=== PATIENT | male | born 1995 | race Caucasian/White ===

== ENCOUNTER 2019-03-11 19:58 | Emergency (ER) | payer SELFPAY ==
[~2019-03-11] VITALS: Ht 182.9 cm; Wt 122.5 kg
--- OUTSIDE RECORDS SUMMARY | 2019-03-11 20:01 | XMS REPORT ---
Author Author [facility] Address Unknown Phone Unavailable Care Team Providers Care Commercial Leasing Manager Name Role Phone Unavailable Unavailable Problems This patient has no known problems. Allergies, Adverse Reactions, Alerts This patient has no known allergies or adverse reactions. Medications This patient has no known medications. Encounters Start Date/Time End Date/Time Encounter Type Admission Type Attending [facility] Facility Care Department Encounter ID 2019-01-14 09:19:47 2019-01-14 09:19:47 Outpatient [facility] [id number] 2019-01-01 15:32:09 2019-01-01 15:32:09 Outpatient [facility] [id number] 2018-11-16 15:30:59 2018-11-16 15:30:59 Outpatient [facility] [id number] 2018-10-15 11:52:51 2018-10-15 11:52:51 Outpatient [facility] [id number] 2018-10-15 11:07:38 2018-10-15 11:07:38 Outpatient [facility] [id number] 2018-09-29 02:05:44 2018-09-29 02:05:44 Emergency [facility] [id number] 2018-09-28 08:54:26 2018-09-28 08:54:26 Outpatient [facility] [id number] 2018-08-19 10:10:17 2018-08-19 10:10:17 Outpatient [facility] [id number] 2018-08-19 08:51:29 2018-08-19 08:51:29 Outpatient [facility] [id number]
--- OUTSIDE RECORDS SUMMARY | 2019-03-11 20:01 | XMS REPORT | Clinical Summary ---
Author Author [facility] Organization [facility] Address Unknown Phone Unavailable Care Team Providers Care Business Support Liaison Name Role Phone Franck Bose MD PCP Allergies No Active Allergies Medications End Date Status Medication Sig Dispensed Refills Start Date Active NIFEdipine (PROCARDIA XL) Take 1 tablet 30 tablet 3 30 mg extended release by mouth 9 tabletIndications: daily. Hypertension, unspecified type Active omeprazole (PRILOSEC) 20 Take 1 30 capsule 3 mg delayed release capsule by 9 capsuleIndications: mouth daily. Gastroesophageal reflux disease, esophagitis presence not specified 12/02/2018 Discontinued omeprazole (PRILOSEC) 20 Take 1 30 capsule 3 mg delayed release capsule by 9 capsuleIndications: mouth daily. Gastroesophageal reflux disease, esophagitis presence not specified 12/02/2018 Discontinued NIFEdipine (PROCARDIA XL) Take 1 tablet 30 tablet 3 30 mg extended release by mouth 9 tabletIndications: daily. Hypertension, unspecified type 08/29/2018 amoxicillin (AMOXIL) 500 Take 1 30 capsule 0 mg capsuleIndications: capsule by 9 Acute pharyngitis, mouth 3 times unspecified etiology daily for 10 days. 10/30/2018 diphenoxylate-atropine Take 1 tablet 30 tablet 0 (LOMOTIL) 2.5-0.025 mg by mouth 4 9 per tabletIndications: times daily Chronic diarrhea as needed for up to 5 days for Diarrhea. 12/07/2018 chlorhexidine (PERIDEX) Swish with 473 mL 0 0.12 % mouth 1/2 oz of 9 washIndications: Chronic solution in periodontitis mouth for 30 seconds and spit. Use twice daily for 2 weeks.. 01/14/2019 Discontinued NIFEdipine (PROCARDIA XL) Take 1 tablet 30 tablet 3 30 mg extended release by mouth 9 tabletIndications: daily. Hypertension, unspecified type 01/14/2019 Discontinued omeprazole (PRILOSEC) 20 Take 1 30 capsule 3 mg delayed release capsule by 9 capsuleIndications: mouth daily. Gastroesophageal reflux disease, esophagitis presence not specified Active Problems No known active problems Encounters Care Team Description Date Type Specialty Franck Bose III, MD Hypertension, unspecified type; Gastroesophageal reflux disease, esophagitis presence not specified 01/14/2019 Office Visit Family Practice Sandy Carroll DDS Chronic gingivitis, plaque induced (Primary Dx); Dental caries 01/01/2019 Office Visit Dentistry 01/01/2019 Travel Earline Love RN Hypertension, unspecified type; Gastroesophageal reflux disease, esophagitis presence not specified 11/30/2018 Refill Family Practice Sandy Carroll DDS Chronic periodontitis (Primary Dx); Dental caries 11/16/2018 Office Visit Dentistry 11/16/2018 Travel Ofelia George DO Chronic diarrhea (Primary Dx); Gastroesophageal reflux disease, esophagitis presence not specified; Hypertension, unspecified type 10/15/2018 Office Visit Family Practice Marizol Burris PA Diarrhea, unspecified type (Primary Dx); Acute gastritis without hemorrhage, unspecified gastritis type 09/29/2018 Emergency Emergency Medicine Hypertension, unspecified type 09/28/2018 Ancillary Radiology Procedure 09/28/2018 Travel Franck Bose III, MD Hypertension, unspecified type (Primary Dx); Immunization due; Gastroesophageal reflux disease, esophagitis presence not specified; BMI 38.0-38.9,adult; Acute pharyngitis, unspecified etiology 08/19/2018 Office Visit Family Practice 08/19/2018 Travel after 03/10/2018 Immunizations Name Administration Dates Next Due Influenza, 08/19/2018 Vaccine<FLUCELVAX>(Multi- Dose) Tdap (Tetanus Toxoid, 08/19/2018 Reduced Diphtheria Toxoid And Acellular Pertussis, Absorbed) Family History Medical History Relation Name Comments Diabetes Maternal Grandfather Diabetes Mother Diabetes Paternal Grandmother Relation Name Status Comments Father Alive Maternal Grandfather Alive Maternal Grandmother Alive Maternal Uncle Alive Mother Alive Paternal Aunt Alive Paternal Grandfather Paternal Grandmother Paternal Uncle Alive Social History Date Tobacco Use Types Packs/Day Years Used Current Some Day Smoker Smokeless Tobacco: Never Used Tobacco Cessation: Counseling Given: No Food Insecurity Answer Date Recorded Within the past 12 months, you worried that your Never true 08/19/2018 food would run out before you got money to buy more. Within the past 12 months, the food you bought Never true 08/19/2018 just didn't last and you didn't have money to get more. Sex Assigned at Date Recorded Not on file Industry Job Start Date Occupation Not on file Not on file Not on file Travel End Travel History Travel Start No recent travel history available. Last Filed Vital Signs Reading Time Taken Comments Vital Sign 137/72 01/14/2019 9:20 AM CDT Blood Pressure 92 01/14/2019 9:20 AM CDT Pulse 36.7 C (98.1 F) 01/14/2019 9:20 AM CDT Temperature 18 01/14/2019 9:20 AM CDT Respiratory Rate 98% 09/29/2018 4:43 AM CDT Oxygen Saturation - - Inhaled Oxygen Concentration 126.6 kg (279 lb) 01/14/2019 9:20 AM CDT Weight 182.9 cm (6') 01/14/2019 9:20 AM CDT Height 37.84 01/14/2019 9:20 AM CDT Body Mass Index Plan of Treatment Health Maintenance Due Date Last Done Comments IMM Influenza Seasonal 04/20/2019 08/19/2018 Oct to September (>/=19 yrs) Procedures Comments Procedure Name Priority Date/Time Associated Diagnosis SED RATE Routine 10/15/2018 Chronic diarrhea 11:55 AM CDT GLIADIN IGG/IGA AB Routine 10/15/2018 Chronic diarrhea 11:55 AM CDT BMP POC Routine 09/29/2018 3:39 AM CDT 12 LEAD EKG Routine 09/28/2018 10:52 PM CDT DUPLEX DOPPLER ABD/PEL Routine 09/28/2018 Hypertension, unspecified VASCULAR STUDY, COMPLETE 10:14 AM CDT type HEMOGLOBIN A1C Routine 08/19/2018 Hypertension, unspecified 9:46 AM SECURITIES SALES ASSOCIATE type HEPATITIS PANEL Routine 08/19/2018 Hypertension, unspecified 9:46 AM SECURITIES SALES ASSOCIATE type HIV-1/HIV-2 ROUTINE Routine 08/19/2018 Hypertension, unspecified SCREENING 9:46 AM SECURITIES SALES ASSOCIATE type LIPID PROFILE Routine 08/19/2018 Hypertension, unspecified 9:46 AM SECURITIES SALES ASSOCIATE type LIVER PROFILE Routine 08/19/2018 Hypertension, unspecified 9:46 AM SECURITIES SALES ASSOCIATE type UREA NITROGEN/CREATININE Routine 08/19/2018 Hypertension, unspecified 9:46 AM SECURITIES SALES ASSOCIATE type GLUCOSE Routine 08/19/2018 Hypertension, unspecified 9:46 AM SECURITIES SALES ASSOCIATE type ELECTROLYTES Routine 08/19/2018 Hypertension, unspecified 9:46 AM SECURITIES SALES ASSOCIATE type CBC/DIFF Routine 08/19/2018 Hypertension, unspecified 9:46 AM SECURITIES SALES ASSOCIATE type after 03/10/2018 Results * GLIADIN IGG/IGA AB (10/15/2018 11:55 AM CDT) Antigliadin Ab 3 LABORATORY IgA Reference range: 0 to 19 CORPORATION OF Unit: units ADRIANA (note) Negative 0 - 19 Weak Positive 20 - 30 Moderate to Strong Positive >30 Antigliadin Ab 2 LABORATORY IgG Reference range: 0 to 19 CORPORATION OF Unit: units ADRIANA (note) Negative 0 - 19 Weak Positive 20 - 30 Moderate to Strong Positive >30 Specimen Blood Performing Organization Address City/[facility] Phone Number [employer] LAB[facility]POR[facility] OF [address] [place] [address] ADRIANA 145 * SED RATE (10/15/2018 11:55 AM CDT) Sed Rate 9 <15 mm/Hr BT MAIN-STATION 1 Specimen Blood Performing Organization Address City/[facility] Phone Number [employer] BT MAIN-STATION 1 * BMP POC (09/29/2018 3:39 AM CDT) CO2 POC 25 21 - 32 mmol/L [facility] MAIN-STATION 1 Chloride POC 103 98 - 107 mmol/L [facility] MAIN-STATION 1 Potassium POC 3.8 3.50 - 5.10 mmol/L [facility] MAIN-STATION 1 Sodium POC 143 136 - 145 mmol/L [facility] MAIN-STATION 1 Glucose POC 87 74 - 106 mg/dL [facility] MAIN-STATION 1 Urea Nitrogen 8 7 - 18 mg/dL [facility] POC MAIN-STATION 1 Creatinine POC 0.8 0.6 - 1.3 mg/dL [facility] MAIN-STATION 1 Calcium Ionized 1.09 (L) 1.15 - 1.29 mmol/L [facility] POC MAIN-STATION 1 Hemoglobin POC 16.7 14.0 - 18.0 g/dL [facility] MAIN-STATION 1 Hematocrit POC 49.0 40.0 - 54.0 % [facility] MAIN-STATION 1 GFR, Estimated >60 mL/min/1.73 m2 [facility] MAIN-STATION 1 GFR, Estim, >60 mL/min/1.73 m2 [facility] Afr-Am MAIN-STATION 1 Specimen Performing Organization Address [facility] Phone Number MISYS [facility] MAIN-STATION 1 * 12 LEAD EKG (09/28/2018 10:52 PM CDT) 12 LEAD EKG FOR [facility] Test Date:2018-09-28 Pat Name: KOBY FENTON Department: [id number] Room: CHAIR UNIT Gender: Organ Builder: [id number] :[birth year] Requested By: SUHAIL Mejia Order Number: [id number] Reading MD: Lucio HIGGINS Measurements Intervals [place] Rate: 84 P:50 NE: 159 QRS: 47 QRSD: 100 T: 42 QT: 353 QTc:418 Interpretive Statements SINUS RHYTHM WITH SINUS ARRHYTHMIA Small inferior Q waves noted, may represent prior Infarct or normal variant Probably Normal ECG for age Suggest clinical correlation Electronically Signed On 09-29-2018 9:18:22 CDT by Lucio HIGGINS Specimen Performing Organization Address City/[facility]/Zipcode Phone Number [facility] * DUPLEX DOPPLER ABD/PEL VASCULAR STUDY, COMPLETE (09/28/2018 10:14 AM CDT) Specimen Impressions Performed At IMPRESSION: [facility] No evidence of renal artery stenosis or renal thrombosis. If the report is "FINALIZED" it indicates that the attending/staff radiologist has reviewed the images and agrees with the resident's interpretation. Dictated By: Lorne Mejia MD, 09/28/2018 10:17 AM I have reviewed the study and agree with the findings in this report. Signed By: Mamta Lowry MD, 09/28/2018 10:22 AM Narrative Performed At EXAM: Renal Duplex Ultrasound SMS INDICATION: hypertension, evaluate renal arteries COMPARISON: None TECHNIQUE: Color Doppler and waveform spectral analysis were obtained of the renal vessels and abdominal aorta. FINDINGS: Aorta WST=289 cm/sec Right Kidney: Main renal artery PSV: Ostium/Proximal=67.2 cm/sec Nle=353 cm/sec Distal=69.7 cm/sec Intrarenal (interlobar/arcuate) arteries: Acceleration time: Normal Resistive index: Normal RA PSV/aorta PSV ratio (RAR)=0.8 Left Kidney: Main renal artery PSV: Ostium/Proximal=66.9 cm/sec Mid=86.1 cm/sec Distal=61.3 cm/sec Intrarenal (interlobar/arcuate) arteries: Acceleration time: Normal Resistive index: Normal RA PSV/aorta PSV ratio (RAR)=0.6 Main Renal Veins: Flow Present, velocities are 28 cm/s on the right and 30.1 cm/s on the left. Procedure Note Interface, Rad/Mammog In - 09/28/2018 10:27 AM CDT EXAM: Renal Duplex Ultrasound INDICATION: hypertension, evaluate renal arteries COMPARISON: None TECHNIQUE: Color Doppler and waveform spectral analysis were obtained of the renal vessels and abdominal aorta. FINDINGS: Aorta YNT=845 cm/sec Right Kidney: Main renal artery PSV: Ostium/Proximal=67.2 cm/sec Wwj=113 cm/sec Distal=69.7 cm/sec Intrarenal (interlobar/arcuate) arteries: Acceleration time: Normal Resistive index: Normal RA PSV/aorta PSV ratio (RAR)=0.8 Left Kidney: Main renal artery PSV: Ostium/Proximal=66.9 cm/sec Mid=86.1 cm/sec Distal=61.3 cm/sec Intrarenal (interlobar/arcuate) arteries: Acceleration time: Normal Resistive index: Normal RA PSV/aorta PSV ratio (RAR)=0.6 Main Renal Veins: Flow Present, velocities are 28 cm/s on the right and 30.1 cm/s on the left. IMPRESSION IMPRESSION: No evidence of renal artery stenosis or renal thrombosis. If the report is "FINALIZED" it indicates that the attending/staff radiologist has reviewed the images and agrees with the resident's interpretation. Dictated By: Lorne Mejia MD, 09/28/2018 10:17 AM I have reviewed the study and agree with the findings in this report. Signed By: Mamta Lowry MD, 09/28/2018 10:22 AM Performing Organization Address [facility] Phone Number SMS * HIV-1/HIV-2 ROUTINE SCREENING (08/19/2018 9:46 AM SECURITIES SALES ASSOCIATE) HIV-1/HIV-2 Negative NEG BT MAIN-STATION 3 Specimen Performing Organization Address [facility] Phone Number MISYS BT MAIN-STATION 3 * HEMOGLOBIN A1C (08/19/2018 9:46 AM SECURITIES SALES ASSOCIATE) Hemoglobin A1c 5.5 4.3 - 6.1 % BT DIAGNOSTIC IMMUNOLOGY Est Average 111.2 mg/dL BT DIAGNOSTIC Gluc IMMUNOLOGY Specimen Blood Performing Organization Address [facility] Phone Number MISYS BT DIAGNOSTIC IMMUNOLOGY * ELECTROLYTES (08/19/2018 9:46 AM SECURITIES SALES ASSOCIATE) Sodium 140 136 - 145 mmol/L BT MAIN-STATION 1 Potassium 4.5 3.5 - 5.1 mmol/L BT MAIN-STATION 1 Chloride 101 98 - 107 mmol/L BT MAIN-STATION 1 CO2 30 21 - 31 mmol/L BT MAIN-STATION 1 Anion Gap 9 BT MAIN-STATION 1 Specimen Blood Performing Organization Address [facility] Phone Number MISYS BT MAIN-STATION 1 * LIVER PROFILE (08/19/2018 9:46 AM SECURITIES SALES ASSOCIATE) Protein, Total, 7.2 6.0 - 8.3 g/dL BT MAIN-STATION Serum 1 Albumin 4.2 4.2 - 5.5 g/dL BT MAIN-STATION 1 Bilirubin, 0.6 0.2 - 1.2 mg/dL BT MAIN-STATION Total 1 Alkaline 129 (H) 34 - 104 U/L BT MAIN-STATION Phosphatase, S 1 AST (SGOT) 26 13 - 39 U/L BT MAIN-STATION 1 ALT 71 (H) 7 - 52 U/L BT MAIN-STATION 1 D Bilirubin 0.1 0.0 - 0.2 mg/dL BT MAIN-STATION 1 Specimen Blood Performing Organization Address [facility] Phone Number MISYS BT MAIN-STATION 1 * LIPID PROFILE (08/19/2018 9:46 AM SECURITIES SALES ASSOCIATE) Cholesterol 140 mg/dL BT MAIN-STATION Comment: 1 REFERENCE RANGE: Desirable: <200 mg/dL Borderline: 200-240 mg/dL High Risk: >240 mg/dL Triglyceride 154 (H) <150 mg/dL BT MAIN-STATION Comment: 1 REFERENCE RANGE: Normal: <150 mg/dL Borderline High: 150-199 mg/dL High: 200-499 mg/dL Very High: >mj=415 mg/dL HDL 35 mg/dL BT MAIN-STATION Comment: 1 Increased CHD risk: <40 mg/dL Decreased CHD risk: >60 mg/dL LDL 74 mg/dL BT MAIN-STATION Comment: 1 REFERENCE RANGE: Optimal: <100 mg/dL Near Optimal: 100-129 mg/dL Borderline High: 130-159 mg/dL High: 160-189 mg/dL Very High: >bc=858 mg/dL Specimen Blood Performing Organization Address [facility] Phone [facility] * HEPATITIS PANEL (08/19/2018 9:46 AM SECURITIES SALES ASSOCIATE) HCV IgG Negative NEG BT MAIN-STATION 3 HBsAg Negative NEG BT MAIN-STATION 3 HAV, IgM Negative NEG BT MAIN-STATION 3 HBcAb, IgM Negative NEG BT MAIN-STATION 3 Specimen Blood Performing Organization Address [facility] Phone Number [facility] * GLUCOSE (08/19/2018 9:46 AM SECURITIES SALES ASSOCIATE) Glucose 103 70 - 110 mg/dL BT MAIN-STATION 1 Specimen Blood Performing Organization Address [facility] Phone Number [facility] * CBC/DIFF (08/19/2018 9:46 AM SECURITIES SALES ASSOCIATE) WBC 11.9 4.5 - 12.0 K/uL BT MAIN-STATION 2 RBC 5.74 4.60 - 6.20 M/uL BT MAIN-STATION 2 Hemoglobin 15.6 14.0 - 18.0 g/dL BT MAIN-STATION 2 Hematocrit 49.4 40.0 - 54.0 % BT MAIN-STATION 2 MCV 86 82 - 92 fL BT MAIN-STATION 2 MCH 27.2 27.0 - 31.0 pg BT MAIN-STATION 2 MCHC 31.6 (L) 32.0 - 36.0 g/dL BT MAIN-STATION 2 RDW 39.9 35.1 - 43.9 fL BT MAIN-STATION 2 Platelets 290 150 - 400 K/uL BT MAIN-STATION 2 Mean Platelet 11.1 9.4 - 12.4 fL BT MAIN-STATION Volume 2 Percent NRBC 0.0 BT MAIN-STATION 2 Absolute NRBC 0.00 BT MAIN-STATION 2 Neutrophils 68.1 (H) 34.0 - 67.9 % BT MAIN-STATION 2 Lymphs 18.8 (L) 21.8 - 50.0 % BT MAIN-STATION 2 Monocytes 8.1 5.3 - 12.0 % BT MAIN-STATION 2 Eos 2.9 0.8 - 5.0 % BT MAIN-STATION 2 Basos 0.8 0.2 - 1.2 % BT MAIN-STATION 2 Immature 1.3 (H) 0.0 - 0.5 BT MAIN-STATION Granulocytes 2 Neutrophils 8.11 (H) 1.78 - 5.36 K/uL BT MAIN-STATION (Absolute) 2 Lymphs 2.23 1.32 - 3.57 K/uL BT MAIN-STATION (Absolute) 2 Monocytes(Absol 0.96 (H) 0.30 - 0.82 K/uL BT MAIN-STATION kya) 2 Eos (Absolute) 0.34 0.04 - 0.54 K/uL BT MAIN-STATION 2 Baso (Absolute) 0.10 (H) 0.01 - 0.08 K/uL BT MAIN-STATION 2 Immature Grans 0.15 (H) 0.00 - 0.03 K/uL BT MAIN-STATION (Abs) 2 Specimen Blood Performing Organization Address City/[facility] Phone Number [facility] BT MAIN-STATION 2 * UREA NITROGEN/CREA (08/19/2018 9:46 AM SECURITIES SALES ASSOCIATE) BUN 11 7 - 25 mg/dL BT MAIN-STATION 1 Creatinine 0.80 0.7 - 1.3 mg/dL BT MAIN-STATION 1 GFR, Estimated >60 mL/min/1.73 m2 BT MAIN-STATION 1 eGFR If Africn >60 mL/min/1.73 m2 BT MAIN-STATION Am 1 Specimen Other (Specify in Comments) Performing Organization Address City/[facility] Phone Number [facility]ISYS BT MAIN-STATION 1 after 03/10/2018 Insurance Type Payer Benefit Subscriber ID Effective Phone Address Plan / Dates Group [place] [employer] [place] 2018- [phone] [employer] FAMILY 2019 [id number] PLANNING [place], [place] [address] [facility] FIN[employer]CIAL xxxxxxx 2018- [phone] [id number] [place] [address]
[2019-03-11] MEDS ORDERED: SODIUM CHLORIDE 0.9% 1000ML 1,000 ML IV STA (20:27)
[2019-03-11] MEDS ORDERED: ONDANSETRON HCL INJ 2MG/ML 2ML 2 MG/ML VIAL IV STA (20:27)
[2019-03-11] MEDS ORDERED: ASPIRIN 81 MG CHEW TAB PO ONE (20:30)
--- NOTE | 2019-03-11 20:38 | Diagnostic Imaging Report ---
EXAMINATION: CHEST 2 VIEWS INDICATION: ^cp ^[id number] ^2019 COMPARISON: None FINDINGS: PA and lateral views TUBES and LINES: None. LUNGS: Lungs are well inflated. There is no evidence of pneumonia or pulmonary edema. PLEURA: No pleural effusion or pneumothorax. HEART AND MEDIASTINUM: The cardiomediastinal silhouette is unremarkable. BONES AND SOFT TISSUES: No acute osseous lesion. Soft tissues are unremarkable. UPPER ABDOMEN: No free air under the diaphragm. IMPRESSION: No acute thoracic abnormality. Signed by: Dr. Bahman Calabrese MD on 03/11/2019 8:35 PM
[2019-03-11 20:49] LABS: BASOPHILS # (AUTO) 0.1 (0.0-0.1); BASOPHILS % 0.6 % (0.0-1.0); EOSINOPHILS # (AUTO) 0.1 (0.0-0.4); EOSINOPHILS % 1.2 % (0.0-6.0); HEMATOCRIT 48.4 % (38.2-49.6); HEMOGLOBIN 15.8 g/dL (14.0-18.0); LYMPHOCYTES # (AUTO) 2.5 (1.0-3.2); LYMPHOCYTES % 21.4 % (18.0-39.1); MEAN CORPUSCULAR HGB CONC 32.6 g/dL (31-35); MEAN CORPUSCULAR VOLUME 82.7 fL (81-99); MONOCYTES % 8.5 % (4.4-11.3); NEUTROPHILS # (AUTO) 7.8 (2.1-6.9); NEUTROPHILS % 67.6 % (38.7-80.0); PLATELET COUNT 353 x10e3/uL (140-360); RED BLOOD COUNT 5.85 x10e6/uL (4.3-5.7); RED CELL DISTRIBUTION WIDTH 12.7 % (11.7-14.4)
[2019-03-11] MEDS ORDERED: KETOROLAC TROMETHAMINE 30 MG/ML VIAL IV STA (21:01)
[2019-03-11 21:05] LABS: ALANINE AMINOTRANSFERASE 72 IU/L (0-55); ALBUMIN/GLOBULIN RATIO 1.3 (0.8-2.0); ALKALINE PHOSPHATASE 159 IU/L (40-150); ANION GAP 14.9 mmol/L (8-16); BLOOD UREA NITROGEN 14 mg/dL (7-26); BUN/CREATININE RATIO 16 (6-25); CALCIUM 9.3 mg/dL (8.4-10.2); CARBON DIOXIDE 25 mmol/L (22-29); CHLORIDE 99 mmol/L (98-107); CREATINE KINASE 33 IU/L (30-200); CREATININE, SERUM 0.86 mg/dL (0.72-1.25); EST GLOMERULAR FILTRATION RATE > 60 ML/MIN (60-); GLUCOSE 108 mg/dL (74-118); POTASSIUM 3.9 mmol/L (3.5-5.1); SODIUM 135 mmol/L (136-145)
[2019-03-11 21:31] VITALS: BP 145/97
== END 2019-03-11 21:33 | disposition home or self-care (01) ==
LOC: ER 19:58
DX: R07.89 Other chest pain (principal); R00.0 Tachycardia, unspecified
CPT/HCPCS: 36415; 71046; 80053; 82550; 82553; 84484; 85025; 85379; 93005; 99284; J1885; J2405; J7030

== ENCOUNTER 2021-02-14 18:52 | Emergency (ER) | payer OTHER ==
[~2021-02-14] VITALS: Ht 182.9 cm; Wt 127.5 kg
[~2021-02-14 18:52] MED LIST: TAMIFLU75 MG PO
[2021-02-14 20:57] LABS: BASOPHILS # (AUTO) 0.1 (0.0-0.1); BASOPHILS % 0.6 % (0.0-1.0); EOSINOPHILS # (AUTO) 0.1 (0.0-0.4); EOSINOPHILS % 1.2 % (0.0-6.0); HEMOGLOBIN 14.3 g/dL (14.0-18.0); LYMPHOCYTES # (AUTO) 2.5 (1.0-3.2); LYMPHOCYTES % 26.8 % (18.0-39.1); MEAN CORPUSCULAR HEMOGLOBIN 27.4 pg (28-32); MEAN CORPUSCULAR HGB CONC 32.5 g/dL (31-35); MEAN CORPUSCULAR VOLUME 84.5 fL (81-99); MONOCYTES # (AUTO) 0.7 (0.2-0.8); MONOCYTES % 7.8 % (4.4-11.3); NEUTROPHILS # (AUTO) 5.9 (2.1-6.9); NEUTROPHILS % 63.1 % (38.7-80.0); PLATELET COUNT 329 x10e3/uL (140-360); RED BLOOD COUNT 5.21 x10e6/uL (4.3-5.7); RED CELL DISTRIBUTION WIDTH 12.9 % (11.7-14.4)
[2021-02-14 21:11] LABS: ALBUMIN 4.1 g/dL (3.5-5.0); ALBUMIN/GLOBULIN RATIO 1.1 (0.8-2.0); ANION GAP 16.3 mmol/L (8-16); CREATININE, SERUM 1.13 mg/dL (0.72-1.25); POTASSIUM 4.3 mmol/L (3.5-5.1)
[2021-02-14] MEDS: DICYCLOMINE HCL 20 MG/2 ML VIAL IM ONE (21:13)
[2021-02-14] MEDS: SODIUM CHLORIDE 0.9% 1000ML 1,000 ML IV ONE (21:13)
[2021-02-14] MEDS: ONDANSETRON HCL INJ 2MG/ML 2ML 2 MG/ML VIAL IV STA (21:13)
[2021-02-14] MEDS ORDERED: DICYCLOMINE HCL 20 MG/2 ML VIAL IM ONE (21:17)
[2021-02-14] MEDS ORDERED: ONDANSETRON HCL INJ 2MG/ML 2ML 2 MG/ML VIAL ONE (21:17)
[2021-02-14 21:22] LABS: AMYLASE 40 U/L (25-125); LIPASE 24 U/L (8-78)
[2021-02-15] MEDS: ACETAMINOPHEN 325 MG TAB PO ONE (01:20)
[2021-02-15] MEDS: CASIRIVIMAB/IMDEVIMAB 600 MG INJ IV ONE (01:45)
[2021-02-15 03:02] VITALS: BP 134/75
== END 2021-02-15 03:04 | disposition home or self-care (01) ==
LOC: ER 19:21
DX: U07.1 COVID-19 (principal); R10.84 Generalized abdominal pain; R11.2 Nausea with vomiting, unspecified; R19.7 Diarrhea, unspecified; I10 Essential (primary) hypertension; K21.9 Gastro-esophageal reflux disease without esophagitis
CPT/HCPCS: 36415; 76705; 80053; 82150; 83690; 85025; 99284; J0500; J2405; J7030; U0002

== ENCOUNTER 2022-02-18 12:24 | Emergency (ER) | payer OTHER ==
[~2022-02-18] VITALS: Ht 182.9 cm; Wt 127.0 kg
[2022-02-18] MEDS ORDERED: SODIUM CHLORIDE 0.9% 1000ML 1,000 ML ONE (12:52)
[2022-02-18] MEDS ORDERED: FAMOTIDINE 20 MG/2 ML VIAL IV ONE (12:52)
[2022-02-18] MEDS ORDERED: ONDANSETRON HCL INJ 2MG/ML 2ML 2 MG/ML VIAL ONE (12:52)
[2022-02-18] MEDS ORDERED: ONDANSETRON HCL INJ 2MG/ML 2ML 2 MG/ML VIAL IV STA (13:00)
[2022-02-18] MEDS ORDERED: SODIUM CHLORIDE 0.9% 1000ML 1,000 ML IV ONE (13:00)
[2022-02-18] MEDS ORDERED: ONDANSETRON ODT4 MG PO (14:09)
[2022-02-18 14:24] VITALS: BP 147/93
[2022-02-18] MEDS ORDERED: FAMOTIDINE 20 MG/2 ML VIAL IV SCH (17:00)
== END 2022-02-18 14:24 | disposition home or self-care (01) ==
LOC: FSED 12:29
DX: R11.2 Nausea with vomiting, unspecified (principal); K21.9 Gastro-esophageal reflux disease without esophagitis; I10 Essential (primary) hypertension; K58.9 Irritable bowel syndrome, unspecified; F17.210 Nicotine dependence, cigarettes, uncomplicated
CPT/HCPCS: 80048; 80076; 81003; 85025; 96374; 99283; J2405; J7030